=== PATIENT | male | born 1995 | race Caucasian/White ===

== ENCOUNTER → 2018-11-25 | Outpatient (CLI) | payer BC, OTHER ==
--- NOTE | 2018-11-25 09:54 | REP ---
RIGHT HAND SERIES: Four views. HISTORY: Contusion. COMPARISON STUDY: May 17, 2011. FINDINGS: There is an old healed fracture of the 5th metacarpal unchanged. No acute fracture or subluxation is seen. IMPRESSION: No acute fracture noted. Old healed 5th metacarpal fracture. Electronically Signed by Tesfaye Alejandro MD 11/25/2018 10:22 A
== END ==
LOC: M WUC 08:25
PROVIDERS: ATTEND Physician Assistant
DX: S60.221A Contusion of right hand, initial encounter (principal); X58.XXXA Exposure to other specified factors, initial encounter; Y92.89 Other specified places as the place of occurrence of the external cause; Y99.9 Unspecified external cause status; Y93.9 Activity, unspecified

== ENCOUNTER → 2020-08-22 | Outpatient (CLI) | payer OTHER ==
--- NOTE | 2020-08-26 10:49 | REP ---
ULTRASOUND ANTERIOR ABDOMINAL WALL HISTORY: Periumbilical pain possible hernia. TECHNIQUE: Real-time sonographic evaluation of the umbilical region is performed.. FINDINGS: There is a midline defect in the anterior abdominal wall at this location with a transverse diameter of approximately 1.3 cm. Hernia sac is seen within the superficial anterior abdominal wall with a maximum diameter of 2 cm. Isoechoic contents appear to represent intraperitoneal fat. There is no fluid or bowel in the hernia sac. With transducer pressure, the hernia is partially reducible. MTDD
== END ==
LOC: M RAD 08:43
PROVIDERS: ATTEND Nurse Practitioner Family
DX: R10.33 Periumbilical pain (principal); K43.9 Ventral hernia without obstruction or gangrene

== ENCOUNTER → 2025-10-03 | Outpatient (CLI) | payer OTHER | LOC: M WUC 13:17 | PROVIDERS: ATTEND Student in an Organized Health Care Education/Training Program | DX: R21 Rash and other nonspecific skin eruption (principal) ==

== ENCOUNTER 2025-10-04 22:37 | Emergency (ER) | payer OTHER ==
[~2025-10-04] VITALS: Ht 175.3 cm; Wt 88.1 kg
[2025-10-04 23:29] VITALS: BP 146/82; O2SAT 97
[2025-10-04 23:34] LABS: BASO # 0.0 10^3/uL (0.0-0.2); BASO % 0.5 % (0.0-1.0); EOS # 0.1 10^3/uL (0.0-0.5); EOS % 1.7 % (0.0-3.0); LYMPH # 1.9 10^3/uL (1.5-5.0); LYMPH % 29.6 % (24.0-44.0); MONO # 0.7 10^3/uL (0.0-0.8); MONO % 10.3 % (2.0-8.0); NEUTROPHILS # 3.7 10^3/uL (1.5-8.5); NEUTROPHILS % 57.4 % (36.0-66.0); PLATELET COUNT, AUTOMATED 212 10^3/uL (150-450)
[2025-10-04] MEDS ORDERED: ISOVUE-370 76% 100 ML VIAL As Ordered ONE (23:37)
[2025-10-04 23:58] LABS: INR 0.92
[2025-10-05] MEDS: NS (Normal Saline) 0.9% 1,000 ML IV ONE (00:11)
[2025-10-05] MEDS: KETOROLAC 30 MG/ML 1 ML VIAL IV ONE (00:13)
[2025-10-05] MEDS: dexAMETHasone 4 MG/ML 1 ML VIAL IV ONE (00:13)
[2025-10-05] MEDS: ACETAMINOPHEN *IV* 1,000 MG in IV 1 EA IV ONE (00:13)
[2025-10-05 01:46] LABS: CALCIUM LEVEL 9.2 MG/DL (8.5-10.1); CARBON DIOXIDE LEVEL 28 MMOL/L (20-31); CHLORIDE LEVEL 98 MMOL/L (98-107); CREATININE FOR GFR 0.75 MG/DL (0.70-1.30); GLOMERULAR FILTRATION RATE > 90.0 (>60); MAGNESIUM LEVEL 2.0 MG/DL (1.8-2.4); POTASSIUM SERUM 4.0 MMOL/L (3.5-5.1); SODIUM LEVEL 135 MMOL/L (136-145)
[2025-10-05 02:29] VITALS: BP 146/89; TEMP 97.9; O2SAT 95
== END 2025-10-05 02:30 | disposition home or self-care (01) ==
LOC: M ED 22:37
DX: G43.909 Migraine, unspecified, not intractable, without status migrainosus (principal); R20.2 Paresthesia of skin; F17.210 Nicotine dependence, cigarettes, uncomplicated
CPT/HCPCS: 70450; 70496; 70498; 71045; 80047; 80048; 83735; 85025; 85610; 85730; 93005; 93041; 94760; 96365; 96366; 96375; 99284; J0134; J1100; J1885; J2765; Q9967